=== PATIENT | male | born 1970 | race Caucasian/White ===

== ENCOUNTER 2022-01-08 14:57 | Outpatient (CLI) | payer OTHER | END 2022-01-08 14:58 | disposition home or self-care (01) | LOC: SCSMRI 14:57 | PROVIDERS: ATTEND Podiatrist | DX: G57.62 Lesion of plantar nerve, left lower limb (principal); M79.672 Pain in left foot ==

== ENCOUNTER 2022-03-24 15:53 | Outpatient (CLI) | payer OTHER | END 2022-03-24 15:54 | disposition home or self-care (01) | LOC: SCSRAD 15:53 | PROVIDERS: ATTEND Physician Assistant | DX: M43.9 Deforming dorsopathy, unspecified (principal); I10 Essential (primary) hypertension; M41.9 Scoliosis, unspecified; M46.1 Sacroiliitis, not elsewhere classified | CPT/HCPCS: 72081 ==

== ENCOUNTER 2022-04-16 08:32 | Inpatient (IN) | payer OTHER ==
[2022-04-16] MEDS ORDERED: cefTRIAXone\\ROCEPHIN 2 GM VIAL ONE (09:26)
[2022-04-16 09:49] LABS: ALT (SGPT) 15 U/L (8-55); AST (SGOT) 11 U/L (5-34); Albumin 3.7 g/dL (3.5-5.0); Alkaline Phosphatase 129 U/L (40-110); Anion Gap 12 mmol/L (10-20); BUN (Urea Nitrogen) 25 mg/dL (8.4-25.7); Bilirubin, Total 0.5 mg/dL (0.2-1.2); Calc. Creatinine Clearance 0 mL/min (70-130); Calcium 9.2 mg/dL (7.8-10.44); Carbon Dioxide 24 mmol/L (22-29); Chloride 103 mmol/L (98-107); Estimated GFR 74; Globulin 3.2 g/dL (2.4-3.5); Glucose 146 mg/dL (70-105); Protein, Total 6.9 g/dL (6.0-8.3); Sodium 135 mmol/L (136-145)
[2022-04-16 09:53] LABS: #Eosinphils 0.2 thou/uL (0.0-0.7); #Lymphocytes 1.3 thou/uL (1.20-3.40); #Monocytes 0.6 thou/uL (0.11-0.59); %Basophils 0.7 % (0.0-1.0); %Lymphocytes 18.5 % (21.0-51.0); %Monocytes 7.9 % (0.0-10.0); Hemoglobin 13.3 g/dL (14.0-18.0); Mean Corpuscular HGB CONC 33.2 g/dL (32.0-36.0); Mean Corpuscular Hemoglobin 28.8 pg (27.0-31.0); Mean Corpuscular Volume 86.8 fL (78.0-98.0); Mean Platelet Volume 8.7 fL (7.4-10.4); Platelet Count 225 thou/uL (130-400); RBC Distribution Width 12.8 % (11.5-14.5); Red Blood Cell (RBC) Count 4.62 mill/uL (4.70-6.10); White Blood Cell (WBC) Count 7.2 thou/uL (4.8-10.8)
[2022-04-16] MEDS ORDERED: Vancomycin 1 GM/200 ML BAG ONE (10:09)
[2022-04-16] MEDS ORDERED: Ondansetron ODT 4 MG TAB PO PRN (12:32)
[2022-04-16] MEDS ORDERED: Ondansetron PF 4 MG/2 ML Vial IVP PRN (12:32)
[2022-04-16] MEDS ORDERED: Calcium Carbonate 500 MG ChewTAB PO PRN ×2 (12:32→15:55)
[2022-04-16] MEDS ORDERED: Acetaminophen 325 MG TAB PO PRN (12:32)
[2022-04-16] MEDS ORDERED: Vancomycin 1 GM in Premix Bag 1 BAG IVPB SCH (12:45)
[2022-04-16] MEDS ORDERED: hydrALAZINE 20 MG/ML VIAL SLOW IVP PRN (14:46)
[2022-04-16 19:40] LABS: Bilirubin Negative (Negative); Blood, Urine Negative (Negative); Clarity Clear (Clear); Glucose, Urine (Dipstick) Normal (Negative); Ketone, Urine Negative (Negative); Leukocyte Negative Leu/uL (Negative); Nitrite Negative (Negative); Protein, Urine (Dipstick) Negative (Neg-Trace); Specific Gravity, Urine 1.015 (1.002-1.036); Urobilinogen Normal mg/dL (Less than 2)
[2022-04-16] MEDS ORDERED: Famotidine 20 MG TAB PO SCH (21:00)
[2022-04-16] MEDS ORDERED: VANCOMYCIN 2 GRAM/500 ML BAG 2 GM in Premix Bag 1 BAG IVPB SCH (23:00)
[2022-04-17 06:29] LABS: #Eosinphils 0.4 thou/uL (0.0-0.7); #Lymphocytes 1.8 thou/uL (1.20-3.40); #Monocytes 0.9 thou/uL (0.11-0.59); #Neutrophils 6.5 thou/uL (1.40-6.50); %Basophils 0.4 % (0.0-1.0); %Lymphocytes 18.3 % (21.0-51.0); %Monocytes 9.7 % (0.0-10.0); %Neutrophils 67.5 % (42.0-75.0); Hemoglobin 14.3 g/dL (14.0-18.0); Mean Corpuscular HGB CONC 31.6 g/dL (32.0-36.0); Mean Corpuscular Volume 88.6 fL (78.0-98.0); Mean Platelet Volume 8.4 fL (7.4-10.4); Platelet Count 237 thou/uL (130-400); RBC Distribution Width 12.7 % (11.5-14.5); Red Blood Cell (RBC) Count 5.13 mill/uL (4.70-6.10); White Blood Cell (WBC) Count 9.6 thou/uL (4.8-10.8)
[2022-04-17 06:47] LABS: Anion Gap 12 mmol/L (10-20); BUN (Urea Nitrogen) 24 mg/dL (8.4-25.7); Calc. Creatinine Clearance 89 mL/min (70-130); Calcium 9.1 mg/dL (7.8-10.44); Carbon Dioxide 25 mmol/L (22-29); Chloride 102 mmol/L (98-107); Estimated GFR 53; Glucose 96 mg/dL (70-105); Potassium 4.8 mmol/L (3.5-5.1); Sodium 134 mmol/L (136-145)
[2022-04-17] MEDS: Amlodipine 10 MG TAB PO SCH (08:25)
[2022-04-17] MEDS: cefTRIAXone\\ROCEPHIN 2 GM in Sodium Chloride 0.9% 100 ML IVPB SCH (08:29)
[2022-04-17] MEDS: VANCOMYCIN 1.75 GM/500 ML BAG 1.75 GM in Premix Bag 1 BAG IVPB SCH ×2 (10:19→22:05)
[2022-04-18] MEDS: cefTRIAXone\\ROCEPHIN 2 GM in Sodium Chloride 0.9% 100 ML IVPB SCH (08:22)
[2022-04-18] MEDS: Amlodipine 10 MG TAB PO SCH (08:22)
[2022-04-18] MEDS: VANCOMYCIN 1.75 GM/500 ML BAG 1.75 GM in Premix Bag 1 BAG IVPB SCH ×2 (12:04→22:20)
[2022-04-19 05:34] LABS: #Eosinphils 0.3 thou/uL (0.0-0.7); #Lymphocytes 1.9 thou/uL (1.20-3.40); #Neutrophils 5.7 thou/uL (1.40-6.50); %Basophils 0.4 % (0.0-1.0); %Eosinophils 3.8 % (0.0-10.0); %Lymphocytes 20.8 % (21.0-51.0); %Monocytes 10.9 % (0.0-10.0); %Neutrophils 64.1 % (42.0-75.0); Hemoglobin 15.3 g/dL (14.0-18.0); Mean Corpuscular HGB CONC 32.2 g/dL (32.0-36.0); Mean Corpuscular Hemoglobin 28.1 pg (27.0-31.0); Mean Corpuscular Volume 87.4 fL (78.0-98.0); Mean Platelet Volume 8.1 fL (7.4-10.4); Platelet Count 230 thou/uL (130-400); RBC Distribution Width 12.8 % (11.5-14.5); Red Blood Cell (RBC) Count 5.43 mill/uL (4.70-6.10); White Blood Cell (WBC) Count 8.9 thou/uL (4.8-10.8)
[2022-04-19 06:08] LABS: Anion Gap 12 mmol/L (10-20); BUN (Urea Nitrogen) 14 mg/dL (8.4-25.7); Calc. Creatinine Clearance 179 mL/min (70-130); Calcium 9.4 mg/dL (7.8-10.44); Carbon Dioxide 24 mmol/L (22-29); Chloride 104 mmol/L (98-107); Estimated GFR 107; Glucose 94 mg/dL (70-105); Potassium 4.2 mmol/L (3.5-5.1); Sodium 136 mmol/L (136-145)
[2022-04-19] MEDS: Amlodipine 10 MG TAB PO SCH (08:25)
[2022-04-19] MEDS: cefTRIAXone\\ROCEPHIN 2 GM in Sodium Chloride 0.9% 100 ML IVPB SCH (08:28)
[2022-04-19 11:22] VITALS: BMI 30.7
[2022-04-19 11:27] VITALS: BP 130/80; TEMP 98.3
== END 2022-04-19 11:30 | disposition home or self-care (01) | DRG 603 ==
LOC: ERS 08:32 → ERHOLD 10:19 → SJJU 12:35
PROVIDERS: ADMIT Internal Medicine; ATTEND Internal Medicine
DX: L03.116 Cellulitis of left lower limb (principal); R78.81 Bacteremia; E87.1 Hypo-osmolality and hyponatremia; B96.20 Unspecified Escherichia coli [E. coli] as the cause of diseases classified elsewhere; I10 Essential (primary) hypertension; E78.5 Hyperlipidemia, unspecified; F41.9 Anxiety disorder, unspecified; D64.9 Anemia, unspecified; E66.9 Obesity, unspecified; Z68.30 Body mass index [BMI] 30.0-30.9, adult; Z88.8 Allergy status to other drugs, medicaments and biological substances; Z98.0 Intestinal bypass and anastomosis status; Z98.890 Other specified postprocedural states; Z87.891 Personal history of nicotine dependence
CPT/HCPCS: 36415; 71045; 80048; 80053; 80202; 81003; 83605; 85025; 87040; 96374; 96375; J0696; J3370; J3490

== ENCOUNTER 2022-12-14 12:41 | Outpatient (CLI) | payer BC ==
[2022-12-14 14:06] LABS: #Eosinphils 0.2 10x3/uL (0.0-0.5); #Monocytes 0.5 10x3/uL (0.0-1.1); #Neutrophils 4.2 10x3/uL (1.5-8.4); %Basophils 0.6 % (0.0-2.0); %Eosinophils 2.6 % (0.0-6.0); %Lymphocytes 24.4 % (18.0-47.0); %Monocytes 8.2 % (0.0-10.0); Hemoglobin 13.8 g/dL (13.5-17.5); Mean Corpuscular HGB CONC 32.2 g/dL (32.0-36.0); Mean Corpuscular Hemoglobin 27.8 pg (27.0-33.0); Mean Corpuscular Volume 86.5 fl (81.2-95.1); Mean Platelet Volume 10.6 fl (7.4-10.4); Platelet Count 262 10x3/uL (150-450); RBC Distribution Width 13.9 % (11.5-14.5); Red Blood Cell (RBC) Count 4.96 10x6/uL (4.32-5.72); White Blood Cell (WBC) Count 6.6 10x3/uL (3.5-10.5)
[2022-12-14 14:32] LABS: ALT (SGPT) 21 U/L (8-55); AST (SGOT) 17 U/L (5-34); Albumin 4.1 g/dL (3.5-5.0); Alkaline Phosphatase 126 U/L (40-110); Anion Gap 12 mmol/L (10-20); BUN (Urea Nitrogen) 26 mg/dL (8.4-25.7); Bilirubin, Total 0.4 mg/dL (0.2-1.2); Calc. Creatinine Clearance 0 mL/min (70-130); Calcium 9.8 mg/dL (7.8-10.44); Carbon Dioxide 29 mmol/L (22-29); Chloride 104 mmol/L (98-107); Estimated GFR 68; Globulin 2.7 g/dL (2.4-3.5); Glucose 92 mg/dL (70-105); Potassium 4.9 mmol/L (3.5-5.1); Protein, Total 6.8 g/dL (6.0-8.3); Sodium 140 mmol/L (136-145)
== END 2022-12-14 12:42 | disposition home or self-care (01) ==
LOC: LABBT 12:41
PROVIDERS: ATTEND Surgery
DX: Z01.818 Encounter for other preprocedural examination (principal); K42.9 Umbilical hernia without obstruction or gangrene
CPT/HCPCS: 80053; 85025; 93005; 93010